=== PATIENT | female | born 1990 | race Hispanic/Latino ===

== ENCOUNTER 2024-04-28 03:35 | Emergency (ER) | payer SELFPAY ==
[2024-04-28 03:35] VITALS: BMI 22.2
[2024-04-28 03:40] VITALS: BP 119/81
[2024-04-28 04:00] VITALS: BP 118/79
[2024-04-28 05:28] VITALS: BP 118/79
[2024-04-28 05:45] LABS: % Basophils 0.4 % (0-2); % Eosinophils 0.6 % (0-6); % Immature Granulocytes 0.4 % (0-0.5); % Lymphocytes 11.7 % (20.5-51.1); % Monocytes 5.7 % (1.7-9.3); % Neutrophils 81.2 % (42.2-75.2); Absolute Eosinophils 0.1 10^3/uL (0-0.7); Absolute Lymphocytes 1.3 10^3/uL (1.2-3.4); Absolute Monocytes 0.6 10^3/uL (0.1-0.6); Absolute Neutrophils 9.1 10^3/uL (1.4-6.5); Hematocrit 37.1 % (37.0-47.0); Hemoglobin 12.8 g/dL (12.0-16.0); Mean Corp Hgb Conc. 34.5 g/dL (33.0-37.0); Mean Corpuscular Hgb 26.8 pg (27.0-31.0); Mean Corpuscular Volume 77.6 fL (81.0-99.0); Mean Platelet Volume 9.2 fL (7.4-10.4); Nucleated Red Blood Cells % 0 %; Platelet Count 376 10^3/uL (130-400); Red Blood Cell Count 4.78 10^6/uL (4.20-5.40); Red Cell Dist. Width 13.9 % (11.5-14.5); White Blood Cell Count 11.1 10^3/uL (4.8-10.8)
[2024-04-28 05:57] LABS: Urine Albumin Negative (Neg - Trace); Urine Bilirubin Negative (Negative); Urine Character Clear (Clear); Urine Color Yellow; Urine Glucose Negative (Negative); Urine Ketone Negative (Negative); Urine Leukocyte Negative (Negative); Urine Nitrite Negative (Negative); Urine Occult Blood Trace (Negative); Urine Urobilinogen Negative (Neg - 1+)
[2024-04-28 05:58] LABS: ALT (SGPT) 19 U/L (0-35); AST (SGOT) 26 U/L (14-36); Albumin 4.8 g/dl (3.5-5.0); Alkaline Phosphatase 60 U/L (38-126); Blood Urea Nitrogen 10 mg/dl (7-17); Calcium 9.5 mg/dl (8.4-10.2); Carbon Dioxide 22 mmol/L (22-30); Chloride 103 mmol/L (98-107); Estimated Creatinine Clearance 81 ml/min; Glucose 94 mg/dl (70-99); Lipase 105 U/L (23-300); Potassium 5.4 mmol/L (3.5-5.1); Sodium 138 mmol/L (135-145); Total Bilirubin 0.4 mg/dl (0.2-1.3); Total Protein 7.9 g/dl (6.3-8.2); eGFR > 60.00
[2024-04-28 06:00] VITALS: BP 101/74
[2024-04-28 06:00] LABS: HCG, Serum Qualitative Screen Negative
[2024-04-28 06:22] LABS: Urine Mucus Moderate; Urine Squamous Cell >30 /LPF (Few)
[2024-04-28 06:23] LABS: Urine Bacteria Moderate (Negative)
--- NOTE | 2024-04-28 06:39 | ED.GENMED ---
History of Present Illness
General
Chief Complaint: Abdominal Pain
Source: patient
Time Seen by Provider: 04/28/24 06:31
History of Present Illness
History of Present Illness:
34-year-old female presents to the emergency room complaining of abdominal pain. Patient states he feels a sense of bloating and pressure like she had to have a bowel movement but was unable to. Patient states the pain was worse with walking
better while laying flat. She has no pain at this time. No fever or chills. She had nausea but that has gone away now as well.
Phy Exam
Physical Exam
Physical Exam:
General: Awake, Alert, Oriented X3. No acute distress.
Vitals: unremarkable
Head: Atraumatic
Eyes: Pupils equal, EOMI
Throat: Airway intact, no exudates
Neck: Trachea midline
Lungs: Clear and equal b/l
Heart: Regular rate, no murmurs
Abd: Soft, Nontender, No pulsatile mass
Neuro: Nonfocal
Skin: Warm, dry, no rash
Extremities: pulses equal b/l, no edema
Course
Orders/Labs/Results
Orders:
Orders
04/28/24 05:30
Test Result ONCE
04/28/24 05:32
Complete Blood Count/With Diff Urgent
Comprehensive Metabolic Panel Urgent
HCG, Serum Qualitative Screen Urgent
Lipase Urgent
Urinalysis Reflex To Culture Urgent
Date Specimen was Collected: 04/28/24
Time Specimen was Collected: 05:30
Urine Microscopic Reflex Cult Urgent
Urine Culture Urgent
PINKY Source: U
Specimen Description:
Date Specimen was Collected: 04/28/24
Time Specimen was Collected: 05:30
Abnormal Lab Results
04/28/24
05:32
WBC 11.1 H 10^3/uL
(4.8-10.8)
MCV 77.6 L fL
(81.0-99.0)
MCH 26.8 L pg
(27.0-31.0)
Absolute Neuts (auto) 9.1 H 10^3/uL
(1.4-6.5)
Neutrophils % 81.2 H %
(42.2-75.2)
Lymphocytes % 11.7 L %
(20.5-51.1)
Potassium 5.4 H mmol/L
(3.5-5.1)
Ur Occult Blood Reflex Trace A
(Negative)
Urine RBC 3-6 A /HPF
(0-2)
Urine Bacteria (Reflex) Moderate A
(Negative)
04/28/24 05:32
04/28/24 05:32
Vital Signs
Initial and Last Documented VS:
Initial Vital Signs
Temp Pulse Resp BP Pulse Ox
98.9 F 96 16 119/81 100
04/28/24 03:40 04/28/24 03:40 04/28/24 03:40 04/28/24 03:40 04/28/24 03:40
Last Documented Vital Signs
Temp Pulse Resp BP Pulse Ox
98.5 F 82 16 115/72 99
04/28/24 07:19 04/28/24 07:19 04/28/24 07:19 04/28/24 07:19 04/28/24 07:19
MDM/Problems Addressed
Differential Diagnosis Includes:
Intestinal colic, cholecystitis, biliary colic, gastritis
MDM/Problems Addressed:
Patient had a fair amount of pain on arrival but she is asymptomatic at the time of my evaluation. Her abdominal exam is benign. Labs show no significant abnormality. Patient stable for discharge home and outpatient follow-up.
*Pulse Oximetry
Patient hypoxic: no
*Critical Care Note
Total Time (30-74mins, 75-104mins- exclusive of procedures): Not Applicable
ED Attending Note
-
Portions of this chart may have been created with voice recognition software.� Occasional wrong word or��sound alike� substitutions may have occurred due to the inherent limitations of voice recognition software.
Discharge Plan
Departure
Patient Disposition: Home (Routine Discharge)
Date of Disposition: 04/28/24
Time of Disposition: 07:29
Patient with high blood pressure during this ER visit?: No
Condition: Good
Discharge Problem:
Abdominal pain
Instructions: Abdominal Pain
Prescriptions:
No Action
No Current Medications
0
Referrals:
PRIVATE,PHYSICIAN [Family Provider] -
Interventions
Interventions:
*Risk Screen - Suicide Last Done: 04/28/24 03:40
*General Assessment Last Done: 04/28/24 07:18
*Neglect/Abuse Screening Last Done: 04/28/24 03:40
ED- Fall Risk Assessment Last Done: 04/28/24 05:40
*ED COVID-19 Vaccine History Last Done: 04/28/24 07:18
*Nursing Disposition Last Done: 04/28/24 07:38
CT-Fpcliq-Xrizkyrrzt Assessment Last Done: 04/28/24 07:18
Discharge Date and Time
Discharge Date/Time: 04/28/24 07:39
Print Language: KHMER
[2024-04-28 07:19] VITALS: BP 115/72
== END 2024-04-28 07:39 | disposition home or self-care (01) ==
LOC: EMR 03:35
PROVIDERS: Emergency Medicine; EMERGENCY PHYSICIAN Emergency Medicine
DX: R10.9 Unspecified abdominal pain (principal)
CPT/HCPCS: 99283; 80053; 81003; 81015; 83690; 84703; 85025; 87086